=== PATIENT | female | born 1960 | race African-American/Black ===

== ENCOUNTER → 2019-04-22 | Outpatient (CLI) | payer BC ==
[2019-04-22 15:59] LABS: African American GFR (CKD) 80.5 (60.0-200.0); Anion Gap 6.6 mmol/L (4.00-12.00); BUN/Creat Ratio 14.44 Ratio (12.00-20.00); Carbon Dioxide 28.4 mmol/L (21.6-31.8); Chol/HDL Ratio 3.2; LDL Cholesterol,Calculated 139.2 mg/dL (0.0-131.0); Potassium 4.5 mmol/L (3.5-5.5); VLDL Calculation 23.8 mg/dL (5.00-40.00)
== END | disposition home or self-care (01) ==
LOC: LABWHC1 09:29
PROVIDERS: ATTEND Nurse Practitioner Adult Health
DX: E78.5 Hyperlipidemia, unspecified (principal); I10 Essential (primary) hypertension
CPT/HCPCS: 36415; 80048; 80061

== ENCOUNTER → 2023-04-09 | Outpatient (CLI) | payer BC ==
[2023-04-09 20:07] LABS: ALT 22 U/L (8-44); AST 25 U/L (13-35); Albumin 4.4 d/dL (3.8-4.9); Albumin/Globulin Ratio 1.57 Ratio (1.60-3.17); Alkaline Phosphatase 95 U/L (41-126); BUN/Creat Ratio 10.78 Ratio (12.00-20.00); Blood Urea Nitrogen 9.7 mg/dL (9.0-27.0); Carbon Dioxide 26.5 mmol/L (21.6-31.8); Chloride 105 mmol/L (96-109); Chol/HDL Ratio 3.32 Ratio; Globulin 2.8 d/dL (1.6-3.3); Glucose 90 mg/dL (70-110); LDL Cholesterol,Calculated 114.1 mg/dL (0.0-131.0); Magnesium 2.2 mg/dL (1.5-2.4); Potassium 4.5 mmol/L (3.5-5.5); Sodium 142 mmol/L (135-145); Total Bilirubin 0.2 mg/dL (0.3-1.2); Total Protein 7.2 d/dL (6.2-8.2)
[2023-04-09 21:27] LABS: Basophils # (A) 0.03 X 10*3/uL (0.00-0.10); Basophils % (A) 0.5 %; Eosinophils # (A) 0.21 X 10*3/uL (0.04-0.35); Eosinophils % (A) 3.7 %; HCT 40.5 % (37.2-46.3); HGB 12.8 d/dL (12.0-15.0); Lymphocytes % (A) 51.2 %; MCHC 31.6 d/dL (32.0-37.0); MCV 85.4 FL (80.0-97.0); Mean Platelet Volume 9.5 FL (9.5-12.2); Monocytes # (A) 0.41 X 10*3/uL (0.20-1.00); Monocytes % (A) 7.2 %; NRBC Per 100 WBC 0 X 10*3/uL (0.00-0.01); Neutrophils # (A) 2.09 X 10*3/uL (1.80-7.70); Platelet Count 271 X 10*3/uL (140-440); RBC 4.74 X 10*6/uL (4.10-5.20); RDW 15.1 % (11.5-14.5); WBC 5.66 X 10*3/uL (4.50-10.00)
== END | disposition home or self-care (01) ==
LOC: LABWHC1 12:23
PROVIDERS: ATTEND Internal Medicine Clinical Cardiac Electrophysiology
DX: I10 Essential (primary) hypertension (principal); I34.0 Nonrheumatic mitral (valve) insufficiency; E78.5 Hyperlipidemia, unspecified
CPT/HCPCS: 36415; 80053; 80061; 83036; 83721; 83735; 84443; 85025

== ENCOUNTER → 2023-09-25 | Outpatient (CLI) | payer BC ==
--- NOTE | 2023-09-25 11:35 | CT ---
EXAMINATION TYPE: CT angio chest CT DLP: 1153.7 mGycm, Automated exposure control for dose reduction was used. 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 TECHNIQUE/CONTRAST: CTA scan of the thorax is performed without and with IV Contrast, patient injected with 100ml mL of I sovue 370, aneurysm protocol. 3-D reformats of the aorta were created and a separate workstation. FINDINGS: Lungs/Pleura: No evidence of focal consolidation, pleural effusion or pneumothorax. Linear atelectasi s and/or scarring within the right lower lobe. Airway: Large airways are patent. Heart: Heart is within normal limits for size.. Vasculature: Aortic root aneurysm measuring 4.5 x 3.9 cm. Ascending thoracic aorta measures up to 3.0 cm. Descending thoracic aorta measures up to 2.6 cm. No evidence for dissection or intramural hemato ma. Mediastinum: No gross evidence of adenopathy. Musculoskeletal: No acute osseous abnormalities Soft Tissues: Unremarkable. Lower neck: No significant findings. Upper Abdomen: No significant findings. IMPRESSION: Aortic root aneurysm measuring up to 4.5 cm. No evidence for dissection or intramural hematoma.
== END | disposition home or self-care (01) ==
LOC: RADCTMAIN 09:43
PROVIDERS: ATTEND Family Medicine
DX: Q25.43 Congenital aneurysm of aorta (principal); I71.20 Thoracic aortic aneurysm, without rupture, unspecified; Z86.79 Personal history of other diseases of the circulatory system
CPT/HCPCS: 71275; Q9967